=== PATIENT | female | born 1990 | race Caucasian/White ===

== ENCOUNTER 2018-10-30 22:28 | Emergency (ER) | payer MEDICAID ==
[~2018-10-30] VITALS: Ht 160 cm; Wt 84.2 kg
[2018-10-30 22:38] VITALS: BP 125/84
[2018-10-30] MEDS ORDERED: dexamethasone sod phosphate 10mg/ml inj IM STA (22:56)
[2018-10-30] MEDS ORDERED: CEPH-571 PO (22:59)
[2018-10-30] MEDS ORDERED: NAPR-56 PO (22:59)
[2018-10-30] MEDS ORDERED: LIDO20SO16 PO (22:59)
== END 2018-10-30 23:19 | disposition home or self-care (01) ==
LOC: ER 22:31
DX: J02.0 Streptococcal pharyngitis (principal); Z88.8 Allergy status to other drugs, medicaments and biological substances; Z79.2 Long term (current) use of antibiotics; Z79.899 Other long term (current) drug therapy
CPT/HCPCS: 96372; 99283; J1100

== ENCOUNTER 2019-12-31 22:08 | Emergency (ER) | payer BC, MEDICAID ==
[~2019-12-31] VITALS: Ht 160 cm; Wt 86.4 kg
[~2019-12-31 22:08] MED LIST: CEPH-571 PO; LIDO20SO16 PO
[2019-12-31] MEDS ORDERED: TETanus/Pertussis (Acell)/Diphther VAC/PF (Tdap-Adult) 0.5ml syringe IMVAC ONE (23:10)
[2019-12-31 23:44] VITALS: BP 131/94
== END 2019-12-31 23:46 | disposition home or self-care (01) ==
LOC: ER 22:08
DX: S60.011A Contusion of right thumb without damage to nail, initial encounter (principal); M79.644 Pain in right finger(s); Z88.8 Allergy status to other drugs, medicaments and biological substances; Z79.2 Long term (current) use of antibiotics; X58.XXXA Exposure to other specified factors, initial encounter; Y93.89 Activity, other specified; Y92.89 Other specified places as the place of occurrence of the external cause; Y99.8 Other external cause status
CPT/HCPCS: 29130; 73140; 90471; 90715; 99283